=== PATIENT | male | born 1985 | race Caucasian/White ===

== ENCOUNTER → 2017-01-19 | Outpatient (CLI) | payer BC ==
[2017-01-19 17:52] LABS: ALT/SGPT 40 U/L (12-78); BLOOD UREA NITROGEN 14 mg/dl (7-18); BUN/CREATININE RATIO 14.7 (10-20); CALCIUM 8.9 mg/dl (8.5-10.1); CARBON DIOXIDE 29 mmol/L (21-32); CHLORIDE 105 mmol/L (98-107); CHOLESTEROL 141 mg/dl (0-200); CREATININE 0.93 mg/dl (0.60-1.40); GLUCOSE 75 mg/dl (70-99); POTASSIUM 3.9 mmol/L (3.5-5.1); SODIUM 139 mmol/L (136-145); TRIGLYCERIDES 234 mg/dl (0-150); VERY LOW DENSITY LIPOPROT CALC 47 mg/dl
[2017-01-19 17:55] LABS: ALB/GLOB RATIO 1.1 (0.9-2); ALKALINE PHOSPHATASE 92 U/L (45-117); AST/SGOT 53 U/L (15-37); CHOLESTEROL/HDL RATIO 5.6; HDL CHOLESTEROL 25 mg/dl; LDL CHOLESTEROL CALCULATED 69 mg/dl
== END | disposition home or self-care (01) ==
LOC: C.LABBFT 13:37
PROVIDERS: ATTEND Nurse Practitioner
DX: J30.9 Allergic rhinitis, unspecified (principal); Z13.220 Encounter for screening for lipoid disorders